=== PATIENT | female | born 1980 ===

== ENCOUNTER → 2022-11-04 | Outpatient (CLI) | payer BC ==
[2022-11-04 13:40] LABS: Basophils # (auto) 0.1 10 ^3/uL (0-0.2); Eosinophils # (auto) 0.2 10 ^3/uL (0-0.8); Monocytes # (auto) 0.4 10 ^3/uL (0-1.3); White Blood Cell 4.7 10^3/uL (4.4-10.8)
[2022-11-04 13:42] LABS: Basophils % (auto) 2.1 % (0.0-2.0); Eosinophils % (auto) 4.2 % (0.0-7.0); Hematocrit 23.6 % (36.0-46.0); Lymphocytes # (auto) 1.4 10 ^3/uL (0.4-5.4); Lymphocytes % (auto) 30.5 % (10.0-50.0); Mean Corpuscular Hemoglobin 16.5 pg (28.0-32.0); Mean Corpuscular Hgb Conc. 29.2 g/dL (32.0-36.0); Mean Corpuscular Volume 56.5 fL (80.0-100.0); Monocytes % (auto) 8.5 % (0.0-12.0); Neutrophils # (auto) 2.6 10 ^3/uL (1.6-8.6); Neutrophils % (auto) 54.7 % (37.0-80.0); Nucleated Red Blood Cells % 0.1 %; Red Blood Cells 4.18 10^6/uL (4.0-5.20)
[2022-11-04 14:16] LABS: Albumin 3.2 g/dL (3.4-5.0); Anion Gap 8 (5-15); Carbon Dioxide 19 mmol/L (21-32); Chloride 111 mmol/L (98-107); Potassium 3.6 mmol/L (3.5-5.1); Red Cell Distribution Width 23.8 % (11.8-14.3); Sodium 138 mmol/L (136-145)
[2022-11-04 14:21] LABS: Free T4 (Free Thyroxine) 0.77 ng/dL (0.89-1.76); Prolactin 12.77 ng/mL (2.8-29.2)
[2022-11-04 14:22] LABS: Alanine Aminotransferase 30 U/L (13-56); Alkaline Phosphatase 89 U/L (45-117); Aspartate Aminotransferase 22 U/L (15-37); BUN/Creatinine Ratio 22.4 (10.0-20.0); Bilirubin, Total 0.2 mg/dL (0.2-1.0); Blood Urea Nitrogen 13 mg/dL (7-18); Cholesterol 119 mg/dL (< 200); Free T3 2.8 pg/mL (2.3-4.2); GFR African American 145 mL/min; GFR Non-African American 120 mL/min; Glucose 92 mg/dL (74-106); HDL Cholesterol 25 mg/dL (40-59); T3 Total 1.26 ng/mL (0.60-1.81); Total Protein 7.6 g/dL (6.4-8.2); Triglycerides 626 mg/dL (< 150)
[2022-11-04 14:23] LABS: Folate (Folic Acid) 8.23 ng/mL (5.38-24)
[2022-11-04 14:28] LABS: Hemoglobin 6.9 g/dL (12.2-16.2)
[2022-11-04 17:14] LABS: Anisocytosis Moderate; Hypochromia Marked; Platelet Estimate Adequate
[2022-11-05 06:06] LABS: Estradiol 29.4 pg/mL (.)
[2022-11-05 08:06] LABS: Rheumatoid Arthritis Factor <10.0 IU/mL (<14.0)
[2022-11-05 16:06] LABS: Anti-Nuclear Antibody Direct Negative (Negative)
== END | disposition home or self-care (01) ==
LOC: LAB 11:36
PROVIDERS: ATTEND Family Medicine
DX: Z00.00 Encounter for general adult medical examination without abnormal findings (principal); E66.01 Morbid (severe) obesity due to excess calories; D50.8 Other iron deficiency anemias; M53.3 Sacrococcygeal disorders, not elsewhere classified; R52 Pain, unspecified
CPT/HCPCS: 36415; 80053; 80061; 82670; 82746; 83002; 83036; 84144; 84146; 84403; 84439; 84480; 84481; 85025; 86038; 86431